=== PATIENT | male | born 1970 | race Hispanic/Latino ===

== ENCOUNTER 2023-02-13 18:16 | Emergency (ER) | payer OTHER ==
[~2023-02-13] VITALS: Ht 167.6 cm; Wt 104.3 kg
[2023-02-13] MEDS ORDERED: NIRM1TAB5 PO (19:50)
[2023-02-13] MEDS ORDERED: ONDA4TAB10 PO (19:50)
[2023-02-13] MEDS ORDERED: LOPE2TAB26 PO (19:50)
[2023-02-13 20:00] VITALS: BP 134/90
== END 2023-02-13 20:01 | disposition home or self-care (01) ==
LOC: EDH 18:16
DX: U07.1 COVID-19 (principal); M79.10 Myalgia, unspecified site
CPT/HCPCS: 99283; 87635; 87804 ×2; C9803